=== PATIENT | male | born 1975 | race Caucasian/White ===

== ENCOUNTER 2017-03-22 20:03 | Inpatient (IN) | payer SELFPAY ==
[~2017-03-22] VITALS: Ht 170.2 cm; Wt 95.4 kg
--- NOTE | ~2017-03-22 | CON ---
PATIENT'S NAME: MARIO MUNGUIA [facility] AGE: 41 Y [address] ROOM: [place] [address] [place] [facility] [place]: 03/22/2017 Consultation DISCHARGE DATE: FAMILY PHYSICIAN: Hernando Chinchilla MD ATTENDING PHYSICIAN: KENYA PACKER DATE OF CONSULTATION: 03/23/2017 CHIEF COMPLAINT: Left second toe pain and swelling and redness. HISTORY OF PRESENT ILLNESS: This is a 41-year-old male patient, who was admitted on March 22, 2017, with complaints of left second toe pain, swelling, and redness. The patient states the symptoms started approximately 2 to 3 days prior to admission. The patient said that he had a callus on his toe that his girlfriend had pulled off and had bleeding at that time. Since then, he has also had decreased sensation to his toe and foot below his baseline with his diabetic peripheral neuropathy. The patient was admitted to the hospital with left second toe swelling, pain, and redness of the surrounding foot. Along with the left second toe, the patient also complained about some chills. He has had a history of left third and fourth toe amputation due to osteomyelitis. He also had his right 5 toes amputated in [place] secondary to osteomyelitis. Besides the left second toe pain, swelling, and erythema, the patient also complains of chest discomfort. Otherwise. He denied any shortness of breath, nausea, vomiting, changes in bowels, dizziness, or lightheadedness. PAST MEDICAL HISTORY: 1. Diabetes mellitus type 2. 2. Diabetic peripheral neuropathy. PAST SURGICAL HISTORY: 1. Right first through fifth toe amputation secondary to osteomyelitis. 2. Left third and fourth toe amputation secondary to osteomyelitis. 3. Tonsil and adenoidectomy. ALLERGIES: THE PATIENT IS ALLERGIC TO LEVAQUIN, WHICH CAUSES ITCHING, AND PENICILLIN WHICH CAUSE HIVES. CURRENT MEDICATIONS: 1. NicoDerm 21 transdermal patch daily. 2. Morphine 1 to 2 IV q.2 hours p.r.n. for pain. 3. Tylenol 650 mg q.4 hours p.r.n. for pain or fever. PATIENT'S NAME: MARIO MUNGUIA [facility] AGE: 41 Y [address] ROOM: [place] [address] [place] [facility] [place]: 03/22/2017 Consultation DISCHARGE DATE: FAMILY PHYSICIAN: Hernando Chinchilla MD ATTENDING PHYSICIAN: KENYA PACKER SOCIAL HISTORY: The patient is an active smoker. Smokes about one pack every 4 days. He denies alcohol or illegal drug use. FAMILY HISTORY: Positive for diabetes mellitus in both parents. REVIEW OF SYSTEMS: Ten-point review of systems was negative other than what is stated in HPI. PHYSICAL EXAMINATION: CONSTITUTIONAL: This is a 41-year-old male patient, who is in no acute distress. He is alert and oriented. VITAL SIGNS: Blood pressure 145/97, heart rate is 92, respirations 18, and temperature 98.5. SKIN: Warm, dry, and intact except for what is noted below. HEENT: Eyes: Conjunctivae were clear. Mouth was moist. Ears were normal in shape and symmetry. Nose had no active drainage. NECK: Supple. Thyroid was midline. HEART: Regular rate and rhythm. LUNGS: Respirations were even and unlabored. ABDOMEN: Soft, nontender, and nondistended. : Deferred. MUSCULOSKELETAL: Compartments of the bilateral lower extremities were soft. Sensation to bilateral feet were reduced secondary to the patient's neuropathy. He did have palpable bilateral pedal pulses. RIGHT LOWER EXTREMITY: Right knee range of motion was 0 to approximately 130 degrees of flexion. Cruciate and collateral ligaments were stable. Right ankle was neutral to approximately 35 degrees of dorsiflexion. Toes on the right had been amputated. There was approximately 2+ edema of the foot and 1 to 2+ edema in the right lower extremity. There was a well-healed surgical incision where the toes would be. There was a small ulceration that was packed on the plantar medial aspect of the right foot. LEFT LOWER EXTREMITY: Left knee had a range of motion of 0 to approximately 130 degrees of flexion. Cruciate and collateral ligaments were stable. There was 3+ pitting edema to the left foot and ankle and lower extremity. Left ankle range of motion was neutral to approximately 30 degrees of plantar flexion. The third and fourth toes were absent due to prior amputation, there was well-healed surgical incision in place. There was tenderness to palpation of the left second toe. There was erythema and warmth noted. There was ulceration from the previous callus on the distal aspect of the left second toe. There was also callus noted under the left second metatarsal head. There was erythema and swelling of the left second toe and surrounding foot. NEUROLOGIC: Cranial nerves were grossly intact. PATIENT'S NAME: MARIO MUNGUIA [facility] AGE: 41 Y [address] ROOM: [id number] [place], [place] [address] LOC[place] [facility] [place]: 03/22/2017 Consultation DISCHARGE DATE: FAMILY PHYSICIAN: Hernando Chinchilla MD ATTENDING PHYSICIAN: KENYA PACKER LABORATORY DATA: CBC: Hemoglobin was 11.4, hematocrit was 33.3, WBCs were 13.1, and platelet count was 238. Sodium was 137, potassium was 4.1, chloride was 108, CO2 was 21, BUN was 21, creatinine was 1.3, and glucose was 266. Two troponins were less than 0.04. First CK was 105 and second CK was 72. Calcium was 85. Wound cultures showed moderate Gram-positive growth. Prolactin level was 0.9. CRP was 15.8. IMAGING: X-rays of the left foot findings; 1. Distal third and fourth metatarsals have been amputated. 2. The remaining digits are normal except for diffuse soft tissue swelling involving the second digit with demineralization of the tuft at the distal phalanx that is suspicious for bone destruction. 3. No other abnormalities per Radiology report. Left foot MRI, impression: 1. Suspected osteomyelitis involving the middle and distal phalanges of the second digit. 2. Diffuse cellulitis involving the left foot, worse along the dorsum of the foot. 3. Normal signal with flexor hallucis longus and brevis muscles raising the question of mitosis, no focal fluid collection to suggest abscess. An x-ray reviewed with Dr. Peña, did show bone destruction of the distal aspect of the left second toe. Also MRI findings reviewed with Dr. Peña, swelling of the left second toe, suspicious for osteomyelitis and cellulitis. IMPRESSION: Left second toe osteomyelitis with surrounding cellulitis. PLAN: We plan for taking to the OR tomorrow for a left second toe amputation and gastrocnemius recession. Postoperatively, the patient will need pain control and DVT prophylaxis. The patient will also be placed on postoperative antibiotics after wound cultures are taken in the operating room. JEWEL MORENO PA-C FOR MD LOIS SMITH/marcial PATIENT'S NAME: MARIO MUNGUIA [facility] AGE: 41 Y [address] ROOM: [place] [address] [place] [facility] [place]: 03/22/2017 Consultation DISCHARGE DATE: FAMILY PHYSICIAN: Hernando Chinchilla MD ATTENDING PHYSICIAN: KENYA PACKER /[id number] d: 03/24/17 0119 t: 04/01/17 1523, CONSULTATION REPORT
--- NOTE | ~2017-03-22 | CON ---
PATIENT'S NAME: MARIO MUNGUIA [facility] AGE: 41 Y [address] ROOM: [id number] [place], [place] [address] LOCATION: [facility] [place] ADMIT DATE: 03/22/2017 Consultation DISCHARGE DATE: FAMILY PHYSICIAN: Hernando Chinchilla MD ATTENDING PHYSICIAN: MANOLO PACKER DATE OF CONSULTATION: 03/23/2017 REFERRING PHYSICIAN: Manolo Packer MD REASON FOR VISIT: Left second toe ulcer. HISTORY OF PRESENT ILLNESS: This is a 41-year-old male patient who was admitted to [facility] with left foot pain. He has a significant history of uncontrolled type 2 diabetes mellitus. He reports previous amputation of all right foot toes secondary to osteomyelitis in [place] last year. He currently has 3 toes to his left foot. Three days prior to admission, he admits to pain in his left second toe. He admits to chills and reports he felt warm, but never took his temperature. He also noticed erythema to the site. He did soak his foot with Epsom salt x1 prior to admit to the hospital. The patient rates his pain as 7/10. He denies chest pain or shortness of breath. He admits to intermittent fevers. He reports he is hungry as he is currently n.p.o. He denies further skin issues. He has a history of bipolar and reports he has been hospitalized at [facility] in the past. He does have current inserts from [employer], but does not consistently wear them and does not remember how old they are. He reports when he does take his blood sugars, they are in the 300s. He also reports he has had some blood sugars in the 500s. He reports that he has ran out of [employer]. He currently works at [employer], but has no insurance. A pack of cigarettes lasts him about 4 days. PAST MEDICAL HISTORY: Uncontrolled type 2 diabetes mellitus with peripheral neuropathy, depression, anxiety, cellulitis, hypertension, hypercholesteremia, previous osteomyelitis, bipolar, and diabetic retinopathy. PAST SURGICAL HISTORY: Tonsillectomy, right eye surgery, and several toe amputations. FAMILY HISTORY: Positive for diabetes. SOCIAL HISTORY: The patient lives in [place]. He reports he is , but does have a girlfriend. A pack of cigarettes lasts him about 4 days. PATIENT'S NAME: MUNGUIA, MARIO L [facility] AGE: 41 Y [address] ROOM: [place] [address] LOCATION: [facility] [place] ADMIT DATE: 03/22/2017 Consultation DISCHARGE DATE: FAMILY PHYSICIAN: Hernando Chinchilla MD ATTENDING PHYSICIAN: MANOLO PACKER ALLERGIES: PENICILLIN AND LEVAQUIN. CURRENT MEDICATIONS: Please refer to the medication administration record. REVIEW OF SYSTEMS: Pertinent positives addressed in the HPI and all the rest are negative. PHYSICAL EXAMINATION: VITAL SIGNS: Temperature 99.9, pulse 108, respirations 18, blood pressure 159/74, and pulse oximetry 95% on room air. Height is 5 feet 7 inches and weight 103.3 kg. GENERAL: The patient is alert and oriented x3. At times, closes his eyes during interaction and reports he is tired. HEENT: Head is normocephalic and atraumatic. Anicteric sclerae. NECK: Supple. NEUROLOGICAL: Grossly nonfocal. MUSCULOSKELETAL: Able to wiggle toes to left foot. EXTREMITIES: +2 pedal pulses. +3 lower leg edema. Capillary refill intact. Extremities are warm to touch. SKIN: To the patient's right first metatarsal head area, he has an ulcer that measures 0.5 cm width x 0.5 cm length x 1.0 cm depth. No bone probe. Dry bloody drainage noted. Periwound is callused. Difficult to visualize the wound bed, but appears down to subcutaneous tissue. Left second toe is very edematous and erythemic. Medial aspect is yellow with fluctuant area. Tip of the toe has a moist pink ulcer that measures 0.5 cm width x 0.5 length x 0.2 cm depth. Periwound is callused. Scant serosanguineous exudate. The patient declines buttocks visualization. LABORATORY DATA: White blood cell count 12.7, hemoglobin 11.4, hematocrit 32.1, and platelets 228. Sodium 137, potassium 4.1, chloride 108, bicarbonate 21, BUN 21, creatinine 1.3, and glucose 226. CRP 15.80. Wound culture pending. ASSESSMENT AND PLAN: Again, this is a 41-year-old male patient who was admitted to [facility] with a left second toe ulcer. 1. Left second toe ulcer secondary to diabetes with probable osteomyelitis. The patient will have MRI today. He is currently n.p.o. If osteomyelitis is present, I recommend consulting Orthopedics. Really, no drainage noted. We will leave site open to air for now. 2. Right first metatarsal head ulcer secondary to diabetes. We will loosely pack with iodoform gauze daily. Discussed the benefit of seeing the PATIENT'S NAME: MARIO MUNGUIA [facility] AGE: 41 Y [address] ROOM: [place] [address] LOCATION: [facility] [place] ADMIT DATE: 03/22/2017 Consultation DISCHARGE DATE: FAMILY PHYSICIAN: Hernando Chinchilla MD ATTENDING PHYSICIAN: MANOLO PACKER patient in Outpatient Wound Care for followup. Unfortunately, the patient did not have insurance and reports he does not know if he would be able to pay for inserts. I encouraged him to discuss with Care Management the possibility of obtaining resources or disability on hospital discharge. 3. Uncontrolled type 2 diabetes with peripheral neuropathy. The patient would benefit from diabetic education consult. I would like to thank Dr. Packer for this consult. LANCE PATHAK APRN FOR MD EDMUND RHOADES/tone /[id number] d: 03/23/17 1223 t: 04/08/17 1628, CONSULTATION REPORT
--- NOTE | ~2017-03-22 | CON ---
PATIENT'S NAME: [facility] AGE: 41 Y [address] ROOM: [place] [address] LOCATION: [facility] ADMIT DATE: 03/22/2017 Consultation DISCHARGE DATE: FAMILY PHYSICIAN: Hernando Chinchilla MD ATTENDING PHYSICIAN: MANOLO PACKER DATE OF CONSULTATION: 03/25/2016 INFECTIOUS DISEASE CONSULTATION REFERRING PHYSICIAN: Manolo Packer MD REASON FOR CONSULTATION: Left 2nd toe osteomyelitis. HISTORY OF PRESENT ILLNESS: This is a 40-year-old gentleman with a history of diabetes, noncompliant; history of right foot toe amputation from the osteomyelitis, who presents with left 2nd toe infection and seen by the Orthopedic doctor status post I and D done and noted that amputation was done at the level of the 2nd metatarsophalangeal joint space and there was purulence noted along with a big diabetic ulcer. OR culture grew Staphylococcus aureus, sensitivity pending. Currently, getting IV clindamycin. ID consultation requested for antibiotic management. I discussed with Dr. Peña and he is concerned that osteomyelitis still remains so he recommend to treat as osteomyelitis. The patient denied any fever or chills. No cough or cough of mucus. No chest pain. No abdominal pain, and no significant left foot pain at this point. PAST MEDICAL HISTORY: 1. Diabetes. 2. Peripheral neuropathy. 3. History of foot osteomyelitis. 4. Diabetic foot ulcer. ALLERGIES: LEVAQUIN CAUSING ITCHING. PENICILLIN CAUSING HIVES, BUT THE PATIENT TOLERATED ANCEF IN THE PAST. SOCIAL HISTORY: Smoker. FAMILY HISTORY: Positive for diabetes. PATIENT'S NAME: [facility] AGE: 41 Y [address] ROOM: [place] [address] LOCATION: [facility] ADMIT DATE: 03/22/2017 Consultation DISCHARGE DATE: FAMILY PHYSICIAN: Hernando Chinchilla MD ATTENDING PHYSICIAN: MANOLO PACKER CURRENT MEDICATIONS: Current Medicine: IV clindamycin. REVIEW OF SYSTEMS: Per HPI. PHYSICAL EXAMINATION: VITAL SIGNS: Blood pressure 171/79, pulse rate 72, respirations 18, and temperature 98.4. GENERAL: In NAD. HEENT: Conjunctivae pink. Sclerae not icteric. NECK: Supple. LUNGS: Clear to auscultation bilaterally. HEART: Regular rhythm and rate. ABDOMEN: Bowel sounds positive. No tenderness or rebound tenderness. BACK AND EXTREMITIES: Left foot wound dressing. SKIN: No rash. LABORATORY DATA: White blood cell 11.3, hemoglobin 10.4, and platelets 247,000. ESR done on 23 of March is greater than 120, and BUN 16, creatinine 1.2, and total CK 72 on 23 of March. CRP done on 23 of March is 15.8. No more value is less than 0.8. Micro lab; OR culture from 03/24/2017 has grown Staphylococcus aureus, sensitivity is pending. On 03/23/2017, post wound culture grew Staphylococcus aureus, sensitivity is pending, and group B Streptococcus, and diphtheroid. Blood culture done on 03/22/2017, two sets, no growth. An MRI done on 03/23/2017 showed that suspected osteomyelitis involving the middle and distal phalanx of the 2nd digit. ASSESSMENT AND PLAN: This is a 40-year-old gentleman with diabetes presented with left 2nd toe osteomyelitis, status post amputation at the level of metatarsophalangeal joint. During the surgery, pus noticed and also a big diabetic ulcer status post debridement up to the 2nd metatarsal head area. OR culture grew Staphylococcus aureus, sensitive is pending, and wound culture grow group B strep and Streptococcus aureus, sensitivity is pending. Penicillin allergy, but tolerated Ancef in the past. Discussed with Dr. Peña due to the purulence in the 2nd MTP joint and also the big diabetic ulcer up to the metatarsal head. He recommend to treat as osteomyelitis still remains. Discussed with the patient. The patient agreed to treat for 6 weeks of IV antibiotic at this point. RECOMMENDATIONS: We will stop IV clindamycin. We will start IV daptomycin 6 mg/kg IV q.24 hour. We will continue for 6 weeks from the debridement which will be through PATIENT'S NAME: MARIO MUNGUIA [facility] AGE: 41 Y [address] ROOM: [place] [address] LOCATION: [facility] ADMIT DATE: 03/22/2017 Consultation DISCHARGE DATE: FAMILY PHYSICIAN: Hernando Chinchilla MD ATTENDING PHYSICIAN: MANOLO PACKER 05/01/2017. We will check weekly laboratories and follow up to ID Clinic in 4 weeks. So weekly laboratories will be CBC, CMP, ESR, CRP, and total CK and we will fax to ID Clinic at [phone]. The patient will need PICC line. If the patient needs less expensive antibiotics then we can try IV Ancef 2 g q.8 hours. If in case that the Staphylococcus aureus is methicillin sensitive, but if it is MRSA then need to continue IV daptomycin. If any questions, please call ID Service at [phone]. MD MADDI COTTRELL/tone /[id number] d: 03/25/171946 t: 03/26/17 1013, CONSULTATION REPORT
--- NOTE | ~2017-03-22 | OR ---
PATIENT'S NAME: MARIO ZARATE [facility] AGE: 41 Y [address] ROOM: [place] [address] LOCATION: [facility] [place] ADMIT DATE: 03/22/2017 OR/Procedure Report DISCHARGE DATE: FAMILY PHYSICIAN: Hernando Chinchilla MD ATTENDING PHYSICIAN: KENYA PACKER SURGEON: Bob Peña MD STORE WORKER: Elpidio Andrade PA-C DATE OF PROCEDURE: 03/24/2017 PREOPERATIVE DIAGNOSES: 1. Left gastrocnemius equinus/shortened Achilles tendon. 2. Left second toe gangrene. 3. Symptomatic diabetic pressure ulcer, stage IV, plantar surface of the foot with surrounding callosity. POSTOPERATIVE DIAGNOSES: 1. Left gastrocnemius equinus/shortened Achilles tendon. 2. Left second toe gangrene. 3. Symptomatic diabetic pressure ulcer, stage IV, plantar surface of the foot with surrounding callosity. PROCEDURES PERFORMED: 1. Left gastrocnemius recession procedure. 2. Left second toe amputation at metatarsophalangeal joint. 3. Full-thickness debridement of diabetic stage IV pressure ulcer, includes skin, subcutaneous tissue, muscle, and fascia down to plantar surface of second metatarsal head. 4. Use of intraoperative fluoroscopy, less than one hour. ANESTHESIA: General endotracheal anesthesia. FLUIDS: See anesthesia report. ESTIMATED BLOOD LOSS: Minimal. TOURNIQUET: Left proximal thigh, 250 mmHg. SPECIMENS: Left wound cultures and amputated second toe. COMPLICATIONS: None. DISPOSITION: Stable, in PACU. COUNTS: All counts were correct. PATIENT'S NAME: MARIO ZARATE [facility] AGE: 41 Y [address] ROOM: [place] [address] LOCATION: [facility] [place] ADMIT DATE: 03/22/2017 OR/Procedure Report DISCHARGE DATE: FAMILY PHYSICIAN: Hernando Chinchilla MD ATTENDING PHYSICIAN: KENYA PACKER INDICATIONS: Mr. Zarate is a 41-year-old gentleman who underwent the noted procedures above. The risks, benefits, and alternatives to pursuing surgical intervention were discussed with the patient in detail. Anesthesia was consulted for their perioperative evaluation of the patient. Informed consent was obtained, and the patient elected to proceed with surgery. I marked his left lower extremity, indicating the correct surgical site. DESCRIPTION OF PROCEDURE: The patient was brought from the holding area to the operating room. A time-out was performed. General anesthesia was administered. Clindamycin antibiotic was administered for prophylaxis. The left lower extremity was then prepped and draped in a sterile fashion. An Esmarch was used to exsanguinate the limb, and the tourniquet was inflated to 250 mmHg. I began at the medial aspect of the leg. I performed a gastrocnemius recession procedure. The incision was longitudinal and carried through skin, subcutaneous tissue, muscle, and fascia, down to the gastrocnemius aponeurosis. I introduced a speculum, and with a 15 blade knife on a long handle, I performed a gastrocnemius recession. My PA performed a dorsiflexion movement to the ankle and achieved good excursion and improved dorsiflexion. The wound was then copiously irrigated with a normal sterile saline solution and closed in layers. I then turned my attention to the foot. Notably, there was purulent drainage coming from the second toe. There was erythema, swelling, and purulent drainage. There was also a 4 cm x 4 cm stage IV plantar diabetic forefoot ulcer under the second metatarsal head. I began by amputating the second toe using a 15 blade knife at the second metatarsophalangeal joint. The toe was removed. There was purulence at the level of the second metatarsophalangeal joint. This purulence communicated with the diabetic pressure sore at the plantar surface of the foot under the second metatarsal head. I performed a debridement using a 15 blade knife, rongeur, and pituitary rongeur to debride the area after the toe was amputated. Using a 15 blade knife, I performed a full-thickness debridement of the 4 cm x 4 cm full-thickness stage IV diabetic pressure sore under the plantar surface of the foot. The debridement included skin, subcutaneous tissue, muscle, and fascia, down to the second metatarsal head plantarly. A 15 blade knife, rongeurs, curettes, and pituitary rongeurs were used for the debridement. The wound was then copiously irrigated with 3 L of normal sterile saline solution using pulsatile lavage. The amputation flap was approximated using a 2-0 nylon suture in interrupted PATIENT'S NAME: MARIO ZARATE [facility] AGE: 41 Y [address] ROOM: [address] [address] LOCATION: [facility] [place] ADMIT DATE: 03/22/2017 OR/Procedure Report DISCHARGE DATE: FAMILY PHYSICIAN: Hernando Chinchilla MD ATTENDING PHYSICIAN: KENYA PACKER horizontal mattress fashion. The tourniquet was let down. Sterile dressings were then placed in the form of Xeroform, followed by 4x4, Webril, and Naveen bandage. The patient was placed into a postop shoe. The patient was then transferred from the operating table and extubated. He was brought to the recovery room in stable condition. There were no intraoperative complications noted. Of note, my PA, Elpidio Andrade PA-C, played an integral role in the intraoperative care of this patient. This included preoperative positioning, intraoperative expert retraction, and closing and dressing functions. IMPRESSION: The patient is status post the noted procedures above. PLAN: The patient will be nonweightbearing to the left lower extremity in a soft dressing and postop shoe. He will be instructed to rest, ice, and elevate the extremity going forward. He will work on range of motion of the ankle. Dressing change will be performed on postoperative day 2. Antibiotics in the form of clindamycin will be continued IV. We will follow up the intraoperative cultures as they become available. We will consult Infectious Disease. The hospitalist will continue to manage the patient's concomitant medical comorbidities. I will continue to follow the patient closely in the postoperative period. Pain control will be administered as needed. DVT prophylaxis will be prescribed. MD LASHELL SMITH/tone /[id number] d: 03/24/17 1339 t: 03/24/17 1635, OPERATIVE SUMMARY
--- NOTE | ~2017-03-22 | DS ---
PATIENT'S NAME: MARIO MUNGUIA [facility] AGE: 41 Y [address] ROOM: [address] [address] LOCATION: GPCU ADMIT DATE: 03/22/2017 Discharge Summary DISCHARGE DATE: 03/31/2017 FAMILY PHYSICIAN: Hernando Chinchilla MD ATTENDING PHYSICIAN: Manolo Chappell DISCHARGE DIAGNOSES: 1. Osteomyelitis of multiple toes on left foot. 2. Type 2 diabetes with neuropathy and nephropathy. 3. He has chronic kidney disease stage 3 and we noted hyponatremia during his hospitalization. PROCEDURES: He had amputation of multiple toes and PowerLine placed during the hospitalization. LABORATORY DATA: Blood sugars are better controlled towards the end of his hospitalization. They were elevated as high as 399, his lowest was 108. Chemistries, blood gas was benign. Sodium and potassium on March 30 were 137 and 4.2 respectively. Glucose 183. BUN was 25 with creatinine canceled for some reason, I am not sure why. Anyway his albumin was quite low estimated. TSH was normal. CRP was elevated at 3.26. White count on March 30 was 8.9 with hemoglobin 10.9, platelets 384. Procalcitonin was benign. Urinalysis showed no white cells, 0-2 epithelial cells, and 5-10 red blood cells with rare hyaline casts and rare bacteria on March 23. Urine drug screen was negative. PHYSICAL EXAMINATION: GENERAL: He is alert and verbally articulate. CHEST: Clear. HEART: Regular rate and rhythm without murmur. ABDOMEN: Belly is soft, nontender. No HSM or masses. EXTREMITIES: Feet were bandaged but extremities were not swollen; warm, well perfused. DIET: At discharge, diet will be recommended at 1600 calorie ADA. ACTIVITY: Per the recommendations of Orthopedics and Physical Therapy. DISCHARGE MEDICATIONS: Medications are per nursing medication reconciliation. [facility] daptomycin 625 daily with a stop date of 05/11/2017. It should be noted that he has declined smoking cessation and his compliance with multiple recommendations are in question. Once he is discharged, we recommend follow up in [address] Peña. PATIENT'S NAME: MUNGUIA [facility] AGE: 41 Y [address] ROOM: [id number] [place], [place] [address] [facility] ADMIT DATE: 03/22/2017 Discharge Summary DISCHARGE DATE: 03/31/2017 FAMILY PHYSICIAN: Hernando Chinchilla MD ATTENDING PHYSICIAN: Manolo Chappell Note that discharge exam and planning took greater than a 1/2 hour. MD ARSLAN GOLD/modl /[id number] d: 04/01/17616 t: 04/20/17 1559, DISCHARGE SUMMARY
--- NOTE | ~2017-03-22 | HP ---
PATIENT'S NAME: MARIO MUNGUIA [facility] AGE: 41 Y [address] ROOM: [place] [address] LOCATION: [facility] [place] ADMIT DATE: 03/22/2017 History & Physical DISCHARGE DATE: FAMILY PHYSICIAN: Hernando Chinchilla MD ATTENDING PHYSICIAN: KENYA PACKER DATE OF SERVICE: CHIEF COMPLAINT: Left second toe pain and swelling and erythema since 2 days ago. HISTORY OF PRESENT ILLNESS: This is a 41-year-old male with history remarkable for a poorly controlled longstanding diabetes and noncompliant on medications who recently underwent all 5 toes of the right foot amputation in [place] secondary to osteomyelitis. The story is that about 2-3 days ago, the patient has been having pain, swelling and erythema in the second toe of the left foot. The pain has been getting worse and decreased sensation at his usual baseline from diabetic peripheral neuropathy. He also has been feeling some chills, but he never took temperature at home. Occasionally, he complains of some chest tightness in the left side of the chest on and off only for few seconds, but he states that he gets this type of chest tightness after he smokes cigarettes. No cough. No shortness of breath. No palpitation. No syncope. No presyncope. The chest pain that he was talking about was localized without radiation. He does not have any history of myocardial infarction or known coronary artery disease according to the patient. Because of the pain, swelling and erythema in the second toe of the left foot, the patient came here for evaluation. REVIEW OF SYSTEMS: As mentioned in the history of present illness. All other system were reviewed and were negative except those mentioned in the history of present illness. PAST MEDICAL HISTORY: 1. Diabetes type 2. 2. Diabetic peripheral neuropathy. 3. Active cigarette smoker ALLERGIES: LEVAQUIN CAUSES ITCHINESS AND PENICILLIN WHICH CAUSES HIVES. PATIENT'S NAME: MARIO MUNGUIA [facility] AGE: 41 Y [address] ROOM: [place] [address] LOCATION: [facility] [place] ADMIT DATE: 03/22/2017 History & Physical DISCHARGE DATE: FAMILY PHYSICIAN: Hernando Chinchilla MD ATTENDING PHYSICIAN: KENYA PACKER [place] MEDICATIONS: 1. Insulin sliding scale, NovoLog 3 times a day with meals, but the patient has been noncompliant. 2. Insulin NPH 20 units every morning. The patient also has been noncompliant on and off. 3. Insulin NPH 17 units subcu at bedtime. The patient also has been noncompliant. He has been using on and off. SOCIAL HISTORY: The patient is an active cigarette smoker about 1 pack every 4 days for the last 3 years. Denies any alcohol or any illegal drug use. FAMILY HISTORY: Both parents have diabetes type 2. PAST SURGICAL HISTORY: 1. Status post amputation of all 5 toes of the right foot secondary to osteomyelitis in October 2016. 2. Status post left third and fourth toe amputation from diabetic ulcer complication and also osteomyelitis in the past. PHYSICAL EXAMINATION: VITAL SIGNS: At the time of my dictation; temperature 99, blood pressure 140/72, MAP of 100, heart rate of 75, respiration of 14, saturation is 99% on room air. GENERAL APPEARANCE: Alert and oriented x3, in no acute distress. HEENT: Pupils equally round and reactive to light. Extraocular muscles intact. Anicteric sclerae. Nasal turbinates are normal bilaterally. Moist oral mucosa. NECK: No JVD. CARDIOVASCULAR: Regular rate and rhythm. Normal S1, S2. No murmur. No rubs. No gallops. RESPIRATORY: Clear to auscultation with diffuse breath sounds diffusely. No crackles, no wheezing, no rales, no rhonchi. ABDOMEN: Obese, soft, nontender, nondistended, bowel sounds present, no hepatosplenomegaly. No palpable mass. EXTREMITIES: In the right lower extremity, the right foot has amputation of the all 5 toes. The wound looks clean without any evidence of infection. On the second toe of the left foot, he has erythema and warm to touch and tenderness to touch and also a little bit of serosanguineous drainage coming out in the proximal second toe. No pus. Dorsalis pedis pulse and posterior tibialis pulse audible on Doppler bilaterally. No edema in upper or lower extremities except area around the second toe of the left foot. SKIN: As mentioned in the extremity section. No obvious ulcer. NEUROLOGIC: Sensation decreased in bilateral lower extremity from his PATIENT'S NAME: MARIO MUNGUIA [facility] AGE: 41 Y [address] ROOM: [place] [address] LOCATION: [facility] ADMIT DATE: 03/22/2017 History & Physical DISCHARGE DATE: FAMILY PHYSICIAN: Hernando Chinchilla MD ATTENDING PHYSICIAN: KENYA PACKER longstanding peripheral neuropathy. Otherwise, unremarkable. MUSCULOSKELETAL: Pain in the second toe of the left foot, otherwise unremarkable. LABORATORY DATA: Lactic acid 1.4, pH 7.43, white blood cells 13.1, hemoglobin 11.4, hematocrit 33.3, platelet 238, glucose 419, BUN 26, creatinine 1.5, sodium 135, potassium 4.8, chloride 104, CO2 23, calcium 8.2, total protein 6.5, albumin 2.5, AST 16, ALT 21, alkaline phosphatase 112, total bilirubin 0.4, anion gap 12.8, globulin 4.0, GFR 52. Hemoglobin A1c 9.7, procalcitonin 0.09. Acetone negative. IMAGING STUDIES: X-ray of the left foot has been taken. Official reading is pending. Please follow up with the official report in the morning. ASSESSMENT AND PLAN: 1. Regarding his sepsis secondary to left second toe cellulitis with probable underlying osteomyelitis: I have already spoken to the on-call orthopedic surgeon, Dr. Peña and given that the patient is currently hemodynamically stable, we will hold off on the antibiotics for now and get a MRI of the left foot in AM to confirm osteomyelitis and if it is positive then we will consult orthopedic surgeon for a bone biopsy before starting any antibiotics. However, if the patient goes into severe sepsis with hypotension, we will start antibiotics without waiting for the bone biopsy. Currently, the patient is hemodynamically stable. I will keep n.p.o. for now. Blood cultures have been obtained. I will get UA and also urine culture as well. Pain control with IV morphine p.r.n. Further plan will depend on clinical course. I will also check ESR and CRP right now for baseline. Repeat labs again in the morning. IV fluids for hydration. 2. Regarding his diabetes type 2: I will continue the home NPH insulin twice a day, but I will cut by half the dose and will titrate if necessary. At the same time, I will add aggressive sliding scale q.4 hours with subcutaneous regular insulin. Further plan will depend on clinical course. A1c has already been checked and it is 9.7 today. 3. Regarding his acute kidney injury: Looking back at the [facility] records, his GFR has been more than 60 in the past and he has had normal creatinine in the past as well. For DANNY, I am going to keep him with normal saline hydration at 75 mL/h. Check a renal panel in the morning. 4. Regarding his deep venous thrombosis prophylaxis: I will avoid pharmacological prophylaxis for now in the setting of possible bone biopsy tomorrow. PATIENT'S NAME: MARIO MUNGUIA [facility] AGE: 41 Y [address] ROOM: [place] [address] LOCATION: [facility] [place] ADMIT DATE: 03/22/2017 History & Physical DISCHARGE DATE: FAMILY PHYSICIAN: Hernando Chinchilla MD ATTENDING PHYSICIAN: KENYA PACKER Time spent in care on the day of admission 45 minutes where 25 minutes was spent on counseling, by going over the plan of care with the patient and also addressing all the questions and concerns that patient had to his satisfaction. This time also includes coordinating care with on-call orthopedic surgeon, Dr. Peña about holding off on the antibiotics until MRI in the morning to confirm osteomyelitis to see if bone biopsy is necessary. The remaining of the time was spent in interview, chart review and also on physical examination. Further plan will depend on clinical course. KENYA PACKER MD CC/modl /[id number] D: T: 917 HISTORY & PHYSICAL
--- NOTE | ~2017-03-22 | ER ---
PATIENT'S NAME: MARIO MUNGUIA [facility] AGE: 41 Y [address] ROOM: [place] [address] LOCATION: [facility] ADMIT DATE: 03/22/2017 ER/Outpatient Report DISCHARGE DATE: FAMILY PHYSICIAN: Hernando Chinchilla MD ATTENDING PHYSICIAN: Dawood Jackson TIME SEEN: 2015 hours. HISTORY OF PRESENT ILLNESS: The patient is a 41-year-old male with history of type 2 diabetes, insulin dependent. The patient presents with pain and swelling involving his left foot, mostly the second toe. The patient has had previous amputations of his right foot and left foot from complications of his diabetes. The patient has also experienced fever and chills today. ALLERGIES: PENICILLIN AND LEVAQUIN. CURRENT MEDICATIONS: Include: 1. NovoLog. 2. NovoLog fast acting. PAST MEDICAL HISTORY: Depression, type 2 diabetes with history of peripheral neuropathy, hypercholesterolemia, hypertension. PAST SURGICAL HISTORY: Include right partial foot amputation, also amputations of 3 of his toes on his left foot. 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 SOCIAL HISTORY: He is a smoker about a pack per week, alcohol rarely. REVIEW OF SYSTEMS: GENERAL: No fevers. HEAD AND EENT: Denies headache, sore throat. He is legally blind in his eye. RESPIRATORY: Does cough occasionally. Denies being short of breath. CARDIOVASCULAR: Denies any chest pain. GASTROINTESTINAL: Nauseated with no vomiting. No diarrhea. MUSCULOSKELETAL: Includes pain and swelling of his left foot involving his second toe. PATIENT'S NAME: MARIO MUNGUIA [facility] AGE: 41 Y [address] ROOM: [place] [address] LOCATION: [facility] ADMIT DATE: 03/22/2017 ER/Outpatient Report DISCHARGE DATE: FAMILY PHYSICIAN: Hernando Chinchilla MD ATTENDING PHYSICIAN: Dawood Jackson PHYSICAL EXAMINATION: VITAL SIGNS: His initial blood pressure was 209/95, his pulse 103, his respiratory rate 18, pulse 117, O2 saturations 95%. GENERAL APPEARANCE: White male. He is alert, but somewhat somnolent. HEAD: Normocephalic. EYES: PERRLA. No icterus. NOSE: Septum midline. MOUTH: Oral membranes are moist. NECK: No adenopathy present. LUNGS: Breath sounds present bilaterally. No rales. HEART: Tachy, but no murmur. ABDOMEN: Soft and nontender. EXTREMITIES: Left foot, the second toe is quite swollen. There is somewhat necrotic area on the tip. Tender to palpation. The dorsal aspect of his foot is also inflamed, red, and swollen. Right foot has partial amputation. LABORATORY DATA AND X-RAYS: His lab work, white count was 13.1, hemoglobin 11.4, his ANC was 10.7. Serum acetone was negative. His lactate was 1.4. His procalcitonin was 0.09. CMS, glucose critical at 419, his calcium low at 8.2, his BUN high at 26, creatinine 1.5. Venous pH 7.43. Blood cultures x2 drawn. ASSESSMENT: 1. Cellulitis, left foot, involving second toe, possible osteomyelitis. 2. Insulin-dependent diabetes with poor compliance. 3. Peripheral neuropathy. 4. Hypertension. 5. Hyperlipidemia. PLAN: I did talk to Dr. Mcnulty, who recommended hospital service. Dr. Chappell will see the patient here in the emergency room. SUMAYA ARAMBULA FOR MD WILMAR CALLOWAY/tone /[id number] d: 03/22/17 2358 t: 04/01/17 1815, OUTPATIENT REPORT
--- NOTE | ~2017-03-22 | HP ---
PATIENT'S NAME: MARIO MUNGUIA [facility] AGE: 41 Y [address] ROOM: [place] [address] LOCATION: [facility] [place] ADMIT DATE: 03/22/2017 History & Physical DISCHARGE DATE: FAMILY PHYSICIAN: Hernando Chinchilla MD ATTENDING PHYSICIAN: KENYA PACKER DATE OF SERVICE: ADDENDUM: 1. Regarding his chest discomfort: I will check the cardiac enzymes right now, and if it is abnormal, I will cycle q6h for 3 sets. I will also get an EKG right now. 2. Regarding his active cigarette smoking: Nicotine patch 21 g transdermal daily. MD DYLAN GRAYSON/modl /[id number] D: 131 T: [id number] HISTORY & PHYSICAL
--- NOTE | ~2017-03-22 | OR ---
PATIENT'S NAME: MARIO MUNGUIA [facility] AGE: 41 Y [address] ROOM: [place] [address] [place] [facility] [place]: 03/22/2017 OR/Procedure Report DISCHARGE DATE: FAMILY PHYSICIAN: Hernando Chinchilla MD ATTENDING PHYSICIAN: KENYA PACKER SURGEON: Bob Peña MD BOX SEALING MACHINE CATCHER: DATE OF PROCEDURE: 03/24/2017 ADDENDUM: I introduced intraoperative fluoroscopy, I confirmed the site of amputation for the second toe and performed pre-amputation and post-amputation fluoroscopic images, indicating successful amputation of the left second toe at the metatarsophalangeal joint. MD SERGIO SMITHD/modl /[id number] d: 03/24/17 1319 t: 03/24/17 1643, OPERATIVE SUMMARY
--- NOTE | ~2017-03-22 | ENPV ---
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 There is 3.73 cm x 1.77 cm vascularized lymph node in the left groin region. Procedure Type of Study: Veins:Lower Extremities DVT Study, Lower Extremity Left. Indications for Study:Pain and Swelling. Appropriate Use Criteria:6 Patient Status:Routine. Study Location:Inpatient Portable. Technical Quality:Adequate visualization. Velocities are measured in cm/s ; Diameters are measured in cm Right Lower Extremities DVT Study Measurements Right 2D and Doppler Measurements + + + + +------+------+ + !Location !Visualized!Compressibility!Thrombosis!Signal!Reflux!Reflux ! ! ! ! ! ! ! !(sec) ! + + + + +------+------+ + !GSV Thigh !Yes !Yes !None !Phasic! ! ! + + + + +------+------+ + !Common !Yes !Yes !None !Phasic! ! ! !Femoral ! ! ! ! ! ! ! + + + + +------+------+ + Left Lower Extremities DVT Study Measurements Left 2D and Doppler Measurements + + + + +------+------+ + !Location !Visualized!Compressibility!Thrombosis!Signal!Reflux!Reflux ! ! ! ! ! ! ! !(sec) ! + + + + +------+------+ + !GSV Thigh !Yes !Yes !None !Phasic! ! ! + + + + +------+------+ + !Common !Yes !Yes !None !Phasic! ! ! !Femoral ! ! ! ! ! ! ! + + + + +------+------+ + !Prox !Yes !Yes !None !Phasic! ! ! !Femoral ! ! ! ! ! ! ! + + + + +------+------+ + !Mid Femoral!Yes !Yes !None !Phasic! ! ! + + + + +------+------+ + !Dist !Yes !Yes !None !Phasic! ! ! !Femoral ! ! ! ! ! ! ! + + + + +------+------+ + !Popliteal !Yes !Yes !None !Phasic! ! ! + + + + +------+------+ + !PTV !Yes !Yes !None !Phasic! ! ! + + + + +------+------+ + !Peroneal !Yes !Yes !None !Phasic! ! ! + + + + +------+------+ + Signature dtt: KENYA GARCIA: 03/23/17 1511 Physician Self Edit
[~2017-03-22 20:03] MED LIST: ADVIL200 MG; AMARYL4 MG PO; AVAPRO150 MG PO; CELEXA10 MG PO; CLEOCIN PO; CRESTOR10 MG PO; DULCOLAX10 MG R; FLORASTOR250 MG PO; FLUOXETINE HCL40 MG PO; GLUCOPHAGE1000 MG PO; KEFLEX500 MG PO; LANTUS (IN100 UNIT/M SUB-Q; MEVACOR20 MG PO; MIRALAX17 GM PO; NITROSTAT0.4 MG SL; NORCO 5-325 MG1 TAB PO; NOVOLIN N100 UNIT/1 SUB-Q; NOVOLIN-N100 UNIT/M; NOVOLIN-N100 UNIT/M SUB-Q; NOVOLOG100 UNIT/M; NOVOLOG100 UNIT/M SUB-Q; PROZAC20 MG PO; SENOKOT S (S1 TABLET PO; TYLENOL325 MG PO
[2017-03-22 20:37] LABS: BASOPHIL % 0.2 %; EOSINOPHIL # 0.2 K/uL (0.0-0.5); EOSINOPHIL % 1.3 %; HEMATOCRIT 33.3 % (37.0-53.0); HEMOGLOBIN 11.4 g/dL (12.0-17.0); IMMATURE GRANULOCYTE # 0.1 K/uL (0.0-0.3); IMMATURE GRANULOCYTE % 0.5 %; LYMPHOCYTE # 0.9 K/uL (0.8-4.0); LYMPHOCYTE % 7.2 %; MCH 28.9 pg (27.0-34.0); MCHC 34.2 gm/dL (32.0-36.5); MCV 84.3 fl (83.0-98.0); MONOCYTE # 1.2 K/uL (0.0-1.0); MONOCYTE % 8.9 %; MPV 10.1 fl (9.4-12.4); NEUTROPHIL # (ANC) 10.7 K/uL (1.4-9.0); NEUTROPHIL % 81.9 %; NRBC % 0 /100WBC (0-0.00); PLATELET COUNT 238 K/uL (150-450); RBC 3.95 M/uL (4.00-6.00); RDW-CV 12.7 % (11.9-14.6); WBC 13.1 K/uL (4.0-11.0)
[2017-03-22 21:17] LABS: ALBUMIN 2.5 gm/dL (3.5-5.0); ANION GAP 12.8 (10.0-19.0); CALCIUM 8.2 mg/dL (8.5-10.5); CREATININE 1.5 mg/dL (0.6-1.3); POTASSIUM 4.8 mMol/L (3.7-5.1); TOTAL BILIRUBIN 0.4 mg/dL (0.0-1.5); TOTAL PROTEIN 6.5 g/dL (6.0-8.4)
[2017-03-23 01:14] LABS: CPK 105 IU/L (35-332)
[2017-03-23 04:53] LABS: HEMATOCRIT 33.1 % (37.0-53.0); HEMOGLOBIN 11.4 g/dL (12.0-17.0); MCH 29.1 pg (27.0-34.0); MCHC 34.4 gm/dL (32.0-36.5); MCV 84.4 fl (83.0-98.0); MPV 9.4 fl (9.4-12.4); PLATELET COUNT 228 K/uL (150-450); RBC 3.92 M/uL (4.00-6.00); RDW-CV 12.5 % (11.9-14.6); WBC 12.7 K/uL (4.0-11.0)
[2017-03-23 05:06] LABS: ANION GAP 12.1 (10.0-19.0); BLOOD UREA NITROGEN 21 mg/dL (6-24); CALCIUM 8.3 mg/dL (8.5-10.5); CHLORIDE 108 mMol/L (96-110); CO2 21 mMol/L (22-32); CREATININE 1.3 mg/dL (0.6-1.3); ESTIMATED GFR (MDRD EQUATION) > 60; POTASSIUM 4.1 mMol/L (3.7-5.1); SODIUM 137 mMol/L (135-145)
[2017-03-23 05:14] LABS: BILIRUBIN URINE NEGATIVE (NEGATIVE); BLOOD URINE 150 /UL (NEGATIVE); COLOR URINE YELLOW (YELLOW); GLUCOSE URINE 1000 mg/dL (NEGATIVE); KETONE URINE NEGATIVE (NEGATIVE); LEUKOCYTES URINE NEGATIVE /UL (NEGATIVE); NITRITE URINE NEGATIVE (NEGATIVE); PROTEIN URINE 500 mg/dL (NEGATIVE); SPEC GRAVITY URINE 1.015 (1.003-1.035); UROBILINOGEN URINE NORMAL (NORMAL)
[2017-03-23 05:17] LABS: TURBIDITY URINE CLEAR (CLEAR)
--- NOTE | 2017-03-23 05:24 | NUR ---
Significant Event: Patient is a 41 year old male with a history significant for poorly managed Isulin Dependent Diabetes Mellitus and who recently underwent an amputation of all his toes on his R) foot in [place] secondary to osteomyelitis. Patient reports about 2-3 days age he began having pain, edema and redness in the second toe of his left foot. The pain has been progressively getting worse, along with having increased redness and edema to left foot and fevers (103+ in ER). He was seen in ER for evaluation and subsequenlty admitted. Since arrival to the floor patient has been afebrile, all other VSS. Patient has significant edema to the left foot and remaining toes. There is a small open area at the tip of the 2nd toe that is draining a yellow discharge, sent for gram stain and culture. There is also an open area to the bottom of his R) foot that is not draining. Labs drawn, chest xray pending, EKG WNL. Patients accucheck at 0200 was 384 and patient recieved 15 units of Novolog per SS. He also recieved 7 units of NPH at this time. He has been NPO since midnight. Orders for MRI of foot today. Has denied the need for PRN pain medication. Sleeping well. Follow up:
[2017-03-23 06:12] LABS: BACTERIA URINE RARE (NEGATIVE); EPITHELIAL URINE 0-2 #/HPF (NEGATIVE); WBC URINE NEGATIVE #/HPF (NEGATIVE)
[2017-03-23 10:40] LABS: CPK 72 IU/L (35-332)
--- NOTE | 2017-03-23 12:25 | NUR ---
Spoke to Ceiclia with [employer]. She stated she has assisted patient a few times to complete a Medicaid application but he never follows thru with the remaining paperwork. She can't apply for disability if Jessica is holding his job. I attempted to meet with patient a few times today but was not able to.
--- NOTE | 2017-03-23 14:00 | NUR ---
[facility] note: 1000 Patient is sleeping, left Diabetes Assessment and Diabetes Management booklet at bedside. 1300 Patient is gone to MRI. Significant other in room, introduced myself and patient is well known to [facility] from previous hospitalizations. Significant other agrees to complete assessment from, will check back with patient later to assess further educational needs.
--- NOTE | 2017-03-23 15:32 | NUR ---
Significant Event: AOx3. VSS. Hypoglycemic this a.m. Blood glucose was 60. Dextrose IV was given x2. Accuchecks changed to Q2hrs while NPO. Insulin dc'd and scale. ADA diet. NPO at midnight. IV in L) FA with D5 1/2 NS running at 100ml/hr. Had MRI and doppler done on L) foot. Iodiform and kerlix for dressing on R) foot for ulcer. Change PRN. Follow up:
--- NOTE | 2017-03-24 04:57 | NUR ---
Significant Event: Pt alert and oriented. Stood at bedside to use urinal. Gave tylenol at HS and Morphine x 1 at 0017. NPO since midnight for surgery this morning. Permits not signed. Preop checklist in progress. Left second toe very edematous and reddened. The redness goes up the foot as well. Dressing to right foot cl/dry/intact. Changed IVF to NS @ 75ml/hr. Follow up: Need sub q insulin orders for post op.
[2017-03-24 06:57] LABS: BASOPHIL % 0.2 %; EOSINOPHIL # 0.2 K/uL (0.0-0.5); EOSINOPHIL % 1.5 %; HEMATOCRIT 31.8 % (37.0-53.0); HEMOGLOBIN 11.1 g/dL (12.0-17.0); IMMATURE GRANULOCYTE # 0.1 K/uL (0.0-0.3); IMMATURE GRANULOCYTE % 0.8 %; LYMPHOCYTE # 1.1 K/uL (0.8-4.0); LYMPHOCYTE % 8.1 %; MCH 29.2 pg (27.0-34.0); MCHC 34.9 gm/dL (32.0-36.5); MCV 83.7 fl (83.0-98.0); MONOCYTE # 1.3 K/uL (0.0-1.0); MONOCYTE % 9.3 %; MPV 9.4 fl (9.4-12.4); NEUTROPHIL # (ANC) 10.7 K/uL (1.4-9.0); NEUTROPHIL % 80.1 %; NRBC % 0 /100WBC (0-0.00); PLATELET COUNT 248 K/uL (150-450); RDW-CV 12.5 % (11.9-14.6); WBC 13.4 K/uL (4.0-11.0)
[2017-03-24 07:03] LABS: ANION GAP 12.2 (10.0-19.0); BLOOD UREA NITROGEN 14 mg/dL (6-24); CALCIUM 8.3 mg/dL (8.5-10.5); CHLORIDE 108 mMol/L (96-110); CO2 21 mMol/L (22-32); CREATININE 1.1 mg/dL (0.6-1.3); ESTIMATED GFR (MDRD EQUATION) > 60; POTASSIUM 4.2 mMol/L (3.7-5.1); SODIUM 137 mMol/L (135-145)
--- NOTE | 2017-03-24 14:21 | NUR ---
CONSULT RECEIVED FOR ADA DIET INSTRUCTION. PT TO OR TODAY. HAS HAD DIET INSTRUCTION DURING PAST ADMIT. ADA DIET INSTRUCTION WILL BE COMPLETED PRIOR TO DISCHARGE.
--- NOTE | 2017-03-24 15:56 | NUR ---
Pt alert and oriented x3. Returned from PACU at 1230. Acewrap and casting to left foot and calt, dry and intact. Ft foot wrapped in gauze. VS WNL. Diabetic accuchecks Q4h. Used bedside commode. Given tylenol in PACU for pain, given morphine IV for pain on MSU. Pain before morphine 9 on 0-10 scale. VS WNL. CSM checks Q2h.
--- NOTE | 2017-03-25 04:40 | NUR ---
Significant Event: A/O, VSS on RA, dressing to L)foot and lower leg c.d.i, wiggles toes, plantar/dorsiflex ankle, dressing ro R)foot c.d.i, palpable pulses, 2 mg Morphine given at 0115, NS at 75ml/hr to R)ant fa, non weight bearing to L) lower extremity Follow up: continue plan of care
[2017-03-25 05:49] LABS: BASOPHIL % 0.3 %; EOSINOPHIL # 0.3 K/uL (0.0-0.5); HEMATOCRIT 30.7 % (37.0-53.0); HEMOGLOBIN 10.4 g/dL (12.0-17.0); IMMATURE GRANULOCYTE # 0.1 K/uL (0.0-0.3); IMMATURE GRANULOCYTE % 0.7 %; LYMPHOCYTE # 1.4 K/uL (0.8-4.0); LYMPHOCYTE % 12.5 %; MCH 29.1 pg (27.0-34.0); MCHC 33.9 gm/dL (32.0-36.5); MONOCYTE # 1.1 K/uL (0.0-1.0); MONOCYTE % 9.5 %; MPV 9.7 fl (9.4-12.4); NEUTROPHIL # (ANC) 8.4 K/uL (1.4-9.0); NRBC % 0 /100WBC (0-0.00); PLATELET COUNT 247 K/uL (150-450); RBC 3.57 M/uL (4.00-6.00); RDW-CV 12.3 % (11.9-14.6); WBC 11.3 K/uL (4.0-11.0)
[2017-03-25 06:00] LABS: ALBUMIN 1.9 gm/dL (3.5-5.0); ANION GAP 12.1 (10.0-19.0); BLOOD UREA NITROGEN 16 mg/dL (6-24); CALCIUM 8.5 mg/dL (8.5-10.5); CHLORIDE 106 mMol/L (96-110); CO2 22 mMol/L (22-32); CREATININE 1.2 mg/dL (0.6-1.3); ESTIMATED GFR (MDRD EQUATION) > 60; PHOSPHORUS 3.1 mg/dL (2.5-4.9); POTASSIUM 4.1 mMol/L (3.7-5.1); SODIUM 136 mMol/L (135-145)
--- NOTE | 2017-03-25 13:58 | NUR ---
A - REVIEWED PT'S CHART, CONSULT RECEIVED YESTERDAY WAS DIET ORDER, NOT FOR DIET EDUCATION. INTERDISCIPLINARY REFERRAL: WOUNDS. HAD ALL TOES ON RIGHT LEG AMPUTATED, 2 TOES ON LEFT FOOT AMPUTATED. S/P LEFT SECOND TOE AMPUTATED YESTERDAY. HX OF NON-COMPLIANT W/ DIABETES. RD VISITED PATIENT MULTIPLE TIMES FOR DIET EDUCATION IN THE PAST. HT: 170.18 CM, WT: 227#, BMI 35.6, IBW: 67 KG, %IBW: 153% LABS: GLU 192, ALB 1.9, A1C 9.7%, CRP 15.8 MEDS: INSULIN. DIET: CONSISTENT CARBS. INTAKE 100% X2 MEALS WHEN NOT NPO. PT REPORTED GOOD APPETITE. IN ROOM W/ PT. REVIEWED DM DIET EDUCATION WITH PT. PER , PT DOES NOT CARE FOR DIABETIC DIET EDUCATION. REINFORCEMENT PROVIDED AND DISCUSSED THE IMPORTANCE TO FOLLOW. LEFT DIET EDUCATION MATERIAL AND CONTACT INFORMATION WITH PT. AGREED TO TRY NICHOLAS FOR WOUNDS. EST NEEDS: 7411-7132 KCAL (25-30 KCAL/KG IBW), 74-94 GRAMS PROTEIN (1.1- 1.4 GRAMS/KG IBW), FLUID NEEDS: 1ML/KCAL D - INCREASED NUTRIENT NEEDS RELATED TO HEALING EVIDENCED BY WOUNDS. I - PATIENT AGREED TO TRY NICHOLAS BID. M/E - PT WILL CONTINUE TO TOLERATE >75% OF MEALS AND ABLE TO TOLERATE AT LEAST ONE ORAL SUPPLEMENT PER DAY IN 3-5 DAYS.
[2017-03-25 15:51] LABS: ALK PHOS 123 IU/L (33-138); ALT 19 IU/L (12-78); ANION GAP 10.1 (10.0-19.0); AST 21 IU/L (10-40); BLOOD UREA NITROGEN 18 mg/dL (6-24); CALCIUM 8.5 mg/dL (8.5-10.5); CHLORIDE 108 mMol/L (96-110); CO2 22 mMol/L (22-32); CPK 153 IU/L (35-332); CREATININE 1.1 mg/dL (0.6-1.3); ESTIMATED GFR (MDRD EQUATION) > 60; POTASSIUM 4.1 mMol/L (3.7-5.1); SODIUM 136 mMol/L (135-145); TOTAL PROTEIN 6.9 g/dL (6.0-8.4)
[2017-03-25 15:52] LABS: ALBUMIN 1.8 gm/dL (3.5-5.0); TOTAL BILIRUBIN 0.3 mg/dL (0.0-1.5)
--- NOTE | 2017-03-25 17:51 | NUR ---
Patient continues to report that his pain is adequately controlled. He ambulates with 1 SBA and walker/NWB on L. foot. Adjusted antibiotics today per ID orders. Patient will receive a PICC line for 6 weeks of antibiotics on 03/26/17.
[2017-03-26 04:16] LABS: BASOPHIL % 0.4 %; EOSINOPHIL # 0.5 K/uL (0.0-0.5); EOSINOPHIL % 4.5 %; HEMATOCRIT 29.4 % (37.0-53.0); HEMOGLOBIN 10.3 g/dL (12.0-17.0); IMMATURE GRANULOCYTE # 0.1 K/uL (0.0-0.3); IMMATURE GRANULOCYTE % 0.8 %; LYMPHOCYTE # 1.6 K/uL (0.8-4.0); LYMPHOCYTE % 15.3 %; MCH 29.8 pg (27.0-34.0); MONOCYTE # 1.1 K/uL (0.0-1.0); MONOCYTE % 10.4 %; MPV 9.2 fl (9.4-12.4); NEUTROPHIL # (ANC) 7.2 K/uL (1.4-9.0); NEUTROPHIL % 68.6 %; NRBC % 0 /100WBC (0-0.00); PLATELET COUNT 254 K/uL (150-450); RBC 3.46 M/uL (4.00-6.00); RDW-CV 12.3 % (11.9-14.6); WBC 10.5 K/uL (4.0-11.0)
--- NOTE | 2017-03-26 05:18 | NUR ---
Patient A/Ox3. VSS on RA. Up to bedside commode with walker, no weight on left leg. Left leg/ RT foot dressing CDI. Lungs clear. Bowel sounds present. IV Lt forearm NS running. IV morphine x2 for lt foot pain. AC/HS Accu checks. MSU status.
--- NOTE | 2017-03-26 10:35 | NUR ---
[facility] note 0900 CDE visited briefly with patient, he had completed the Diabetes Survival Skills Assessment form and denies further questions or concerns at this time. Stressed importance of obtaining and maintaining proper blood sugars control to reduce risks of complications related to diabetes, heart, eyes, kidneys and nerves. A1C 9.7 upon admission, will need continued out patient follow up.
--- NOTE | 2017-03-26 13:44 | NUR ---
1015 Went to see Yamil and talk about dismissal plans. He was out of his room and down getting his PICC lined placed. Will stop back by again and see later today or first thing tomorrow morning. CM to continue to follow and assist.
--- NOTE | 2017-03-26 16:36 | NUR ---
Pateint unable to receive PICC line d/t severe vein spasms during insertion. MD aware and patient scheduled to have a power line placed on Thursday. Ambulating with walker/1 SBA/NWB L foot. Reports that his pain is adequately controlled.
--- NOTE | 2017-03-27 03:16 | NUR ---
Significant Event:Pt alert and oriented x3. pleasant with staff and cares. transfers with nwb to the left foot. hops on right. dressing c/d/i to left foot. pt has great toe and last toe remaining. incsion to inner lower left leg covered with luis enrique bandage. pt has no toes to the right foot however is able to put weight on right foot. uses walker and gaitbelt and does fair with transfers.complains of pain to lower leg, and right upper arm where they attempted to place a picc line. prn morphine given x1. has rested well since. void x3 during shift. iv saline locked to left forearm d/t pt tolerating fluids with no complications noted. uses call light approp. achs blood sugars. hs bs was 265. Follow up:
--- NOTE | 2017-03-27 09:30 | NUR ---
A-NUTRITION F/U PICC LINE UNABLE TO BE PLACED; SCHEDULED FOR POWERLINE ON THURSDAY NO NEW LABS MEDS: NOVOLIN-R (ADJUSTED) DIET RX: CONSISTENT CARB W/NICHOLAS BID. PO INTAKE 75-100% EST NUTR NEEDS: [id number] KCALS AND 74-94 GM PROTEIN D-AT NUTRITION RISK W/INCREASED NUTRIENT NEEDS R/T HEALING AEB WOUNDS I-CONTINUE WITH NICHOLAS BID M/E-GOAL: PO INTAKE >/=75% FOR DURATION OF ADMIT 1)F/U PO INTAKE, SUPPLEMENT, SKIN, AND POC IN 4-6 DAYS 2)ASSIST NEEDED
--- NOTE | 2017-03-27 13:00 | NUR ---
0950 Stopped by to see patient but therapies were going into work with him. Therapist did indicate to me that he would benefit from a toilet riser and shower chair when he goes to leave the facility. Will leave a note on the chart for to write scripts for these and then also discuss with Yamil where he can obtain these items when he goes to dismiss. Reviewed his chart, it did appear that he was supposed to get a PICC line placed yesterday but that was not able to happen. They are going to put in a Powerline on Thursday so he will be here until at least then. I will talk with him about coming into [facility] once per day to get his IV Abxs needs when I see him later today or Thursday morning. CM to continue to follow and assist.
--- NOTE | 2017-03-27 15:53 | NUR ---
Significant Event: pt up in room and murdock, no touch wt bear. Pain controlled. Left dressing changed by pa this am. R)foot dressing also changed by nurse this am. Pt family here this afternoon. PT OT work with pt. ORder recd for Power central line Thursday, NPO after 11am that day Follow up:
--- NOTE | 2017-03-28 04:33 | NUR ---
Significant Event: Patient A/Ox3. VSS on RA. Up 1-assist with walker and gait belt. Patient is non wt bearing on L) foot. Bed and chair alarms on at all times due to impulsiveness. No complaints of pain. Blood sugar at HS was 399 and 381. Follow up: Power line to be placed on Thursday by Dr. Narayanan.
--- NOTE | 2017-03-28 17:34 | NUR ---
PATIENT UP TO CHAIR AND BR W/ 1 ASSIST AND WALKER. VSS, AFEBRILE. CONTINUE IV ANTIBIOTICS. NO C/O PAIN.
--- NOTE | 2017-03-29 03:33 | NUR ---
Patient A/Ox3. VSS on Ra. One assist with walker/gaitbelt. Tylenol given x1 for a headache. No complaints of pain in feet. Lungs clear. Bowel sounds present. IV to LT outer forearm saline locked. Changed dressing to Rt foot. Need Powerline place thursday for assisted antibotics [id number]. Blood sugars still tend to be high 300's at HS.
--- NOTE | 2017-03-29 15:46 | NUR ---
Significant Event: pt up to chair 1 asst and bathroom. No c/o pain. Pt eats/drinks well today. TOmorrow to go for central line place per rad. npo at 1100. Permits on chart not signed. Follow up:
--- NOTE | 2017-03-30 04:06 | NUR ---
Significant Event: A/O, VSS on RA, denies pain, dressing to L)foot/leg c.d.i., neuro checks wnl, dressing to R)foot changed, dry/intact, 1 assist/walker to bathroom, hs accucheck 326 Follow up: central line placement today
[2017-03-30 04:15] LABS: BASOPHIL % 0.4 %; EOSINOPHIL # 0.3 K/uL (0.0-0.5); EOSINOPHIL % 3.8 %; HEMATOCRIT 31.5 % (37.0-53.0); HEMOGLOBIN 10.9 g/dL (12.0-17.0); IMMATURE GRANULOCYTE # 0.3 K/uL (0.0-0.3); IMMATURE GRANULOCYTE % 3.8 %; LYMPHOCYTE # 1.7 K/uL (0.8-4.0); LYMPHOCYTE % 19.6 %; MCH 28.9 pg (27.0-34.0); MCHC 34.6 gm/dL (32.0-36.5); MCV 83.6 fl (83.0-98.0); MONOCYTE # 0.7 K/uL (0.0-1.0); MONOCYTE % 7.9 %; MPV 9.1 fl (9.4-12.4); NEUTROPHIL # (ANC) 5.7 K/uL (1.4-9.0); NEUTROPHIL % 64.5 %; NRBC % 0 /100WBC (0-0.00); RBC 3.77 M/uL (4.00-6.00); RDW-CV 12.3 % (11.9-14.6); WBC 8.9 K/uL (4.0-11.0)
[2017-03-30 04:18] LABS: PLATELET COUNT 384 K/uL (150-450)
[2017-03-30 04:30] LABS: ALBUMIN 1.9 gm/dL (3.5-5.0); ANION GAP 11.2 (10.0-19.0); BLOOD UREA NITROGEN 25 mg/dL (6-24); CALCIUM 8.6 mg/dL (8.5-10.5); CHLORIDE 107 mMol/L (96-110); CO2 23 mMol/L (22-32); ESTIMATED GFR (MDRD EQUATION) > 60; PHOSPHORUS 3.5 mg/dL (2.5-4.9); POTASSIUM 4.2 mMol/L (3.7-5.1); SODIUM 137 mMol/L (135-145)
--- NOTE | 2017-03-30 09:18 | NUR ---
PT MOVED TO NO RISK W/ CONSISTENT 75-100% INTAKE. WILL CONT NICHOLAS BID D/T WOUND TO R) FOOT. WILL ASSIST NEEDED.
--- NOTE | 2017-03-30 13:30 | NUR ---
Social visit with SUMAYA Guardado and re:dismissal plans for Yamil. Let them both know that I was working on setting Yamil up as an outpatient at the [facility] for his once a day IV Abxs needs until his stop date of 05/04 on the IV Daptomycin. Both Elpidio and Dr. Abarca were fine with this plan. Let them know that I was planning on having him dismiss tomorrow after his IV Abx infusion in the morning and then he would go to the [facility] morning for his first infusion. Elpidio was fine with this, states he is going to have [facility] RN Elen come up and see Yamil today to look at his feet and then have Yamil follow up with both him and [facility] RNs down the road after his dismissal. Let him know that this was fine. Orders were printed and placed on Pham' chart for MDs to fill out today if they wanted to. SANTA Delatorre updated to the plan to dismiss tomorrow to home with outpatient IV Abxs at the [facility]. I talked with Esther RN at the [facility], [id number], gave her the information on Yamil and set up his first outpatient appt. with them on Thursday at 0830. He will need to be there a few minutes early as it is first appt with them. I stopped in to let Yamil know all of this, but he was with [facility] nurses so I will stop back by and see him later. Left sticky note with all the above on his chart. He is going down to get his Powerline placed this afternoon per SANTA Delatorre. Dismissal orders and ICD 10 code will need to be faxed over to [facility] once orders are completed, fax [phone]. I also have asked that make sure that he was set up with a follow up appointment with ID and also when he dismisses as he is self pay and doesn't see his PCP () on a regular basis and I want to make sure that he is seen by someone once he goes so we can manage his needs. No other questions, needs or concerns. CM to continue to follow and assist.
--- NOTE | 2017-03-30 17:28 | NUR ---
Significant Event: pt ate good breakfast this am, then npo at 11am. Levimir given this am, bg 108 at 1530 pepsi given, bg 123 at 1715 oj given, pt feels ok. PT took pt to do stairs today. No wt bear. WOC is seeing pt and as OP, debrided left foot today. WOC also changed R)ft dress this am. Pt to get picc line at 1720. Follow up:home tomorrow pt will go cancer center as OP for IV antibiotics and WOC will follow pt also
--- NOTE | 2017-03-31 04:56 | NUR ---
Significant Event: A/O, VSS, RA, Tylenol given at 2109 for pain at R)IJ tunneled catheter site, lines patent, good blood return, ecchymotic at site, dressings to bilateral legs/feet changed, 1 assist/walker, non weight bearing to L) foot Follow up: d/c home today
--- NOTE | 2017-03-31 11:02 | NUR ---
1005 Social visit with Yamil. Let him know that I had set up for him to go to the [facility] on Thursday at 0830 for his first outpatient IV infusion for his Abxs needs. He tells me he is fine with this time. His girlfriend will take him over there. Asked that he be there about 0820 to make sure they didn't need any paperwork or anything from him before they started. His girlfriend will come and pick him up later today once he is dismissed. We reviewed his DME that he has at home and he does have a FWW and a cane to get around with. He tells me that he walked with therapies yesterday and had no issues with getting around. He is knows where to get more DME if he should need it. Denied the need for any assistance on this. Encouraged him to make sure to fill out the financial assistance application when he goes home. I also shared with him that the [facility] dept. could help him with applying for Medicaid or seeing why he was getting denied. He states,"ok," but showed very little enthusiasm to this. Expressed to Yamil how important it was that he make sure he goes and gets his IV Abxs everyday, he can work with the staff at the Cancer [facility] to set up times that work best for him and his transportation so that way he never misses a dose. He voices understanding to this. had not yet rounded to complete the orders but once those are done, I will fax them over to the [facility] along with the requested ICD 10 code that is needed. He is already established with our [facility] nurses so if he needs additional dressing changes after he is seen by Elpidio Andrade they can set him up with that as an outpatient. No other questions, needs or concerns. CM to continue to follow and assist. Plan home today.
[2017-03-31] MEDS ORDERED: CUBICIN (NON-F500 MG IV (14:03)
[2017-03-31] MEDS ORDERED: TYLENOL325 MG PO (14:08)
[2017-03-31] MEDS ORDERED: GLUCOPHAGE500 MG PO (14:10)
[2017-03-31] MEDS ORDERED: ASPIRIN325 MG PO (14:13)
[2017-03-31] MEDS ORDERED: PERCOCET 5-3251 EACH PO (14:15)
[2017-03-31] MEDS ORDERED: NICODERM / HABIT7 MG TOP (14:53)
--- NOTE | 2017-03-31 17:03 | NUR ---
Discharge Summary: Patient A/O x 3. Up with 1 assist and walker. Non-weightbearing in left foot. Vital signs stable: temperature 98.5 F, BP 137/65, HR 88, RR 14, O2 saturation 97% RA, and denies pain or shortness of breath. Right tunneled power line clean/dry/intact with good blood return in both ports. Discharge instructions included: new medications/medications changes, receiving infusions at the cancer center starting tomorrow at 0815, general care instructions, following up with Dr. Mckeon, Dr. Peña, and infectious disease, diabetic education, signs/symptoms to be alert for, power line precautions, and how to do dressing changes. Patient and significant other verbalize understanding of all teaching and state they have no further questions at this time. Patient left PCU at 1620 per wheelchair to west tower door and then home to self care with significant other. No other needs at time of discharge. Khoi RN 03/31/17
== END 2017-03-31 13:20 | disposition disaster alternative care site (69) | DRG 616 ==
LOC: GMED 20:03 → GMSU 23:08 → GPCU 23:08
PROVIDERS: Family Medicine; Internal Medicine Geriatric Medicine; Nurse Practitioner Family; Physician Assistant Medical; ADMIT Internal Medicine
PROC: 0KBW0ZZ Excision of Left Foot Muscle, Open Approach (ICD-10-PCS; principal; 2017-03-24)
PROC: 0Y6S0Z0 Detachment at Left 2nd Toe, Complete, Open Approach (ICD-10-PCS; principal; 2017-03-24)
PROC: 0L8P0ZZ Division of Left Lower Leg Tendon, Open Approach (ICD-10-PCS; principal; 2017-03-24)
DX: E11.621 Type 2 diabetes mellitus with foot ulcer (principal); A40.1 Sepsis due to streptococcus, group B; R65.20 Severe sepsis without septic shock; E11.21 Type 2 diabetes mellitus with diabetic nephropathy; E44.0 Moderate protein-calorie malnutrition; N17.9 Acute kidney failure, unspecified; N18.3 Chronic kidney disease, stage 3 (moderate); M86.8X7 Other osteomyelitis, ankle and foot; E87.1 Hypo-osmolality and hyponatremia; E11.51 Type 2 diabetes mellitus with diabetic peripheral angiopathy without gangrene; E11.22 Type 2 diabetes mellitus with diabetic chronic kidney disease; E11.42 Type 2 diabetes mellitus with diabetic polyneuropathy; E11.649 Type 2 diabetes mellitus with hypoglycemia without coma; L03.032 Cellulitis of left toe; L97.529 Non-pressure chronic ulcer of other part of left foot with unspecified severity; I12.9 Hypertensive chronic kidney disease with stage 1 through stage 4 chronic kidney disease, or unspecified chronic kidney disease; Z79.4 Long term (current) use of insulin; F17.210 Nicotine dependence, cigarettes, uncomplicated; Z91.19 Patient's noncompliance with other medical treatment and regimen; M67.02 Short Achilles tendon (acquired), left ankle
CPT/HCPCS: A9577; C1751; C1894; J0878; J1644; J1650; J2270; J7030; J7040; J7042; J7050

== ENCOUNTER → 2017-05-14 | Outpatient (CLI) | payer SELFPAY ==
[~2017-05-14] MED LIST changes: +ASPIRIN325 MG PO; +CUBICIN (NON-F500 MG IV; +GLUCOPHAGE500 MG PO; +NICODERM / HABIT7 MG TOP; +PERCOCET 5-3251 EACH PO
== END | disposition disaster alternative care site (69) ==
LOC: GRAD 14:19
PROC: 05PY33Z Removal of Infusion Device from Upper Vein, Percutaneous Approach (ICD-10-PCS; principal; 2017-05-14)
DX: Z45.2 Encounter for adjustment and management of vascular access device (principal)